=== PATIENT | male | born 1955 | race Caucasian/White ===

== ENCOUNTER 2018-07-24 13:47 | Emergency (ER) | payer MEDICARE ==
[~2018-07-24] VITALS: Ht 177.8 cm; Wt 136.1 kg
[~2018-07-24 13:47] MED LIST: ALLEGRA ALLERGY60 MG PO; ALLO300 PO; ASPI81EC PO; CELE200 PO; CYCL10 PO; METO50ER PO; NEBI5 PO; OLME40 PO; OMEPRAZOLE MAGN20 MG PO; OXYACE7.5T PO; OXYC10TA19 PO; VICODIN ES 7.51 EACH PO; WARF5 PO; ZESTORETIC 20-121 EA PO
[2018-07-24] MEDS ORDERED: ALLO300 PO (13:57)
[2018-07-24 15:26] LABS: BASOPHILS ABSOLUTE AUTO 0.03 K/mm3 (0.00-0.23); BASOPHILS PERCENT AUTO 0 % (0-2); EOSINOPHILS ABSOLUTE AUTO 0.28 K/mm3 (0.00-0.68); EOSINOPHILS PERCENT AUTO 3 % (0-6); Hematocrit 51.2 % (37.0-53.0); Hemoglobin 17.9 g/dL (13.5-17.5); IMMATURE GRAN ABSOLUTE AUTO 0.03 K/mm3 (0.00-0.10); IMMATURE GRAN PERCENT AUTO 0 % (0-1); LYMPHOCYTES ABSOLUTE AUTO 2.42 K/mm3 (0.84-5.20); LYMPHOCYTES PERCENT AUTO 30 % (21-46); MONOCYTES ABSOLUTE AUTO 0.64 K/mm3 (0.16-1.47); MONOCYTES PERCENT AUTO 8 % (4-13); Mean Corpuscular HGB 31.7 pg (26.0-34.0); Mean Corpuscular Volume 91 fL (80-100); Mean Platelet Volume 9.6 fL (9.1-12.4); NEUTROPHILS ABSOLUTE AUTO 4.74 K/mm3 (1.96-9.15); NEUTROPHILS PERCENT AUTO 58 % (41-73); Platelet Count 138 K/mm3 (150-400); RDW Coefficient Variation 13.2 % (11.7-14.2); RDW Standard Deviation 42.5 fL (35.1-46.3); Red Blood Cell Count 5.65 M/mm3 (4.30-5.90); White Blood Cell Count 8.14 K/mm3 (4.00-11.30)
[2018-07-24 15:45] LABS: Anion Gap 5 mmol/L (6-16); Blood Urea Nitrogen 18 mg/dL (8-24); Bun/Creatinine Ratio 14.3 (12.0-20.0); CO2, Blood 32 mmol/L (21-32); Calcium, Blood 9.5 mg/dL (8.5-10.1); Chloride, Blood 105 mmol/L (98-108); Creatinine, Blood 1.26 mg/dL (0.60-1.20); Glomerular Filtration Rate >60 (60-); Glucose, Blood 92 mg/dL (70-99); Potassium, Blood 3.8 mmol/L (3.5-5.5); Sodium, Blood 142 mmol/L (136-145)
[2018-07-24 15:46] LABS: International Normalized Ratio 2.67; Prothrombin Time Results 25.9 Sec (9.7-11.5)
[2018-07-24] MEDS ORDERED: Norco 5-325 Ta1 EACH PO (15:49)
== END 2018-07-24 16:12 | disposition home or self-care (01) ==
LOC: ER 13:47
PROVIDERS: Physician Assistant
DX: M76.32 Iliotibial band syndrome, left leg (principal); I10 Essential (primary) hypertension; Z88.0 Allergy status to penicillin; Z88.8 Allergy status to other drugs, medicaments and biological substances; Z79.01 Long term (current) use of anticoagulants; Z79.899 Other long term (current) drug therapy; Z96.653 Presence of artificial knee joint, bilateral
CPT/HCPCS: 36415; 80048; 85025; 85610; 85730; 93971; 99284-25; J7512

== ENCOUNTER 2019-02-02 20:32 | Emergency (ER) | payer OTHER ==
[~2019-02-02] VITALS: Ht 180.3 cm; Wt 133.4 kg
[~2019-02-02 20:32] MED LIST changes: +Norco 5-325 Ta1 EACH PO
== END 2019-02-02 23:22 | disposition home or self-care (01) ==
LOC: ER 20:32
DX: J06.9 Acute upper respiratory infection, unspecified (principal); I10 Essential (primary) hypertension; Z85.528 Personal history of other malignant neoplasm of kidney
CPT/HCPCS: 71046; 87081; 87430; 99283-25

== ENCOUNTER 2019-12-17 12:17 | Emergency (ER) | payer MEDICARE ==
[~2019-12-17] VITALS: Ht 180.3 cm; Wt 124.7 kg
[2019-12-17] MEDS ORDERED: OXYACE7.5T PO (16:12)
== END 2019-12-17 16:41 | disposition home or self-care (01) ==
LOC: ER 12:17
DX: S22.42XA Multiple fractures of ribs, left side, initial encounter for closed fracture (principal); I10 Essential (primary) hypertension; Z79.01 Long term (current) use of anticoagulants; Z79.899 Other long term (current) drug therapy; Z88.0 Allergy status to penicillin; Z88.6 Allergy status to analgesic agent; Z87.442 Personal history of urinary calculi; W18.30XA Fall on same level, unspecified, initial encounter
CPT/HCPCS: 71046; 99283-25; A9270

== ENCOUNTER 2021-09-05 08:55 | Day surgery (SDC) | payer OTHER ==
[~2021-09-05] VITALS: Ht 180.3 cm; Wt 125.9 kg
[~2021-09-05 08:55] MED LIST changes: +AZELASTINE137 MCG/01; +Gabapentin600 MG PO
--- NOTE | 2021-09-05 11:05 | NUR ---
09/05/21 1105 CHICO HUTCHINSON 0.05MG OF EPI ADDED TO 10MLS OF LIDOCAINE 1% TO CREATE A LOCAL SOLUTION OF LIDOCAINE 1% WITH EPI 1:200,000. 3MLS INJECTED BEFORE CASE . 7MLS OF LOCAL POURED ONTO STERILE FIELD FOR USE DURING CASE. 30MLS OF EPI POURED ONTO STERILE FIELD TO USE FOR PACKING DURING CASE.
--- NOTE | 2021-09-07 08:15 | NUR ---
09/07/21 0815 DIONICIO ISAACS UPDATED INFORMATION FOR RN- RXD
== END 2021-09-05 14:00 | disposition home or self-care (01) ==
LOC: ORSCSDS 08:55
PROVIDERS: Otolaryngology
PROC: 09U707Z Supplement Right Tympanic Membrane with Autologous Tissue Substitute, Open Approach (ICD-10-PCS; principal; 2021-09-05 10:30)
PROC: 0NB50ZZ Excision of Right Temporal Bone, Open Approach (ICD-10-PCS; principal; 2021-09-05 10:30)
DX: H72.91 Unspecified perforation of tympanic membrane, right ear (principal); H60.501 Unspecified acute noninfective otitis externa, right ear; G47.33 Obstructive sleep apnea (adult) (pediatric); E66.9 Obesity, unspecified; I10 Essential (primary) hypertension; Z68.38 Body mass index [BMI] 38.0-38.9, adult; I48.91 Unspecified atrial fibrillation; F17.210 Nicotine dependence, cigarettes, uncomplicated; Z79.01 Long term (current) use of anticoagulants; Z79.899 Other long term (current) drug therapy
CPT/HCPCS: A9270; J0171; J1100; J2001; J2370; J2405; J2704; J3010

== ENCOUNTER → 2022-03-21 | Outpatient (CLI) | payer OTHER ==
[2022-03-21 08:26] LABS: International Normalized Ratio 3.42; Prothrombin Time Results 33.1 Sec (9.7-11.5)
== END | disposition home or self-care (01) ==
LOC: LAB 08:00 → LAB SHORT 08:00
PROVIDERS: Internal Medicine Cardiovascular Disease
DX: Z79.01 Long term (current) use of anticoagulants (principal); Z51.81 Encounter for therapeutic drug level monitoring
CPT/HCPCS: 85610

== ENCOUNTER → 2022-04-02 | Outpatient (CLI) | payer OTHER | END | disposition home or self-care (01) | LOC: LAB 08:06 → LAB SHORT 08:06 | DX: E29.1 Testicular hypofunction (principal) | CPT/HCPCS: 85014 ==

== ENCOUNTER → 2022-05-01 | Outpatient (CLI) | payer OTHER | END | disposition home or self-care (01) | LOC: LAB SHORT 08:19 → LAB 08:19 | DX: E29.1 Testicular hypofunction (principal) | CPT/HCPCS: 85014 ==

== ENCOUNTER 2022-06-29 16:04 | Emergency (ER) | payer OTHER ==
[~2022-06-29] VITALS: Ht 177.8 cm; Wt 132.4 kg
[2022-06-29 16:51] LABS: BASOPHILS ABSOLUTE AUTO 0.02 K/mm3 (0.00-0.23); BASOPHILS PERCENT AUTO 0 % (0-2); EOSINOPHILS ABSOLUTE AUTO 0.15 K/mm3 (0.00-0.68); EOSINOPHILS PERCENT AUTO 2 % (0-6); Hematocrit 51.7 % (37.0-53.0); Hemoglobin 17.7 g/dL (13.5-17.5); IMMATURE GRAN ABSOLUTE AUTO 0.03 K/mm3 (0.00-0.10); IMMATURE GRAN PERCENT AUTO 0 % (0-1); LYMPHOCYTES ABSOLUTE AUTO 2.21 K/mm3 (0.84-5.20); LYMPHOCYTES PERCENT AUTO 27 % (21-46); MONOCYTES ABSOLUTE AUTO 0.61 K/mm3 (0.16-1.47); MONOCYTES PERCENT AUTO 7 % (4-13); Mean Corpuscular HGB 31.3 pg (26.0-34.0); Mean Corpuscular HGB Conc 34.2 g/dL (31.5-36.5); Mean Corpuscular Volume 92 fL (80-100); Mean Platelet Volume 9.1 fL (9.1-12.4); NEUTROPHILS ABSOLUTE AUTO 5.21 K/mm3 (1.96-9.15); NEUTROPHILS PERCENT AUTO 63 % (41-73); Platelet Count 164 K/mm3 (150-400); RDW Coefficient Variation 14.5 % (11.7-14.2); RDW Standard Deviation 48.3 fL (35.1-46.3); Red Blood Cell Count 5.65 M/mm3 (4.30-5.90); White Blood Cell Count 8.23 K/mm3 (4.00-11.30)
[2022-06-29 17:10] LABS: Albumin, Blood 3.7 g/dL (3.4-5.0); Albumin/Globulin Ratio 1.1 (0.8-1.8); Bilirubin, Total 0.7 mg/dL (0.1-1.0); Bun/Creatinine Ratio 13.4 (12.0-20.0); Calcium, Blood 9.2 mg/dL (8.5-10.1); Creatinine, Blood 1.12 mg/dL (0.60-1.20); Globulin, Blood 3.4 g/dL (2.2-4.0); Potassium, Blood 4.1 mmol/L (3.5-5.5); Total Protein, Blood 7.1 g/dL (6.4-8.2)
[2022-06-29 18:15] VITALS: BP 132/79
== END 2022-06-29 18:23 | disposition home or self-care (01) ==
LOC: ER 16:04
PROVIDERS: Physician Assistant
DX: S39.012A Strain of muscle, fascia and tendon of lower back, initial encounter (principal); S00.93XA Contusion of unspecified part of head, initial encounter; I10 Essential (primary) hypertension; Z88.0 Allergy status to penicillin; Z88.1 Allergy status to other antibiotic agents; Z85.528 Personal history of other malignant neoplasm of kidney; Z79.01 Long term (current) use of anticoagulants; Z79.899 Other long term (current) drug therapy; W13.2XXA Fall from, out of or through roof, initial encounter
CPT/HCPCS: 70450; 71045; 72128; 80053; 85025; 96374; 99284-25; A9270; J3010

== ENCOUNTER → 2022-07-01 | Outpatient (CLI) | payer OTHER ==
[2022-07-01 12:51] LABS: International Normalized Ratio 2.22; Prothrombin Time Results 22.3 Sec (9.7-11.5)
== END | disposition home or self-care (01) ==
LOC: LAB SHORT 12:15 → LAB 12:15
PROVIDERS: Internal Medicine Cardiovascular Disease
DX: Z79.01 Long term (current) use of anticoagulants (principal); Z51.81 Encounter for therapeutic drug level monitoring; E29.1 Testicular hypofunction
CPT/HCPCS: 84403; 85014; 85610

== ENCOUNTER → 2022-09-16 | Outpatient (CLI) | payer OTHER | LOC: LAB 18:00 | DX: R10.84 Generalized abdominal pain (principal) ==

== ENCOUNTER → 2022-09-26 | Outpatient (CLI) | payer OTHER | END | disposition home or self-care (01) | LOC: LAB SHORT 10:30 → LAB 10:30 | DX: N30.90 Cystitis, unspecified without hematuria (principal) | CPT/HCPCS: 87086 ==

== ENCOUNTER → 2022-10-09 | Outpatient (CLI) | payer OTHER ==
[2022-10-09 12:30] LABS: International Normalized Ratio 2.37; Prothrombin Time Results 23.7 Sec (9.7-11.5)
== END | disposition home or self-care (01) ==
LOC: LAB 11:35 → LAB SHORT 11:35
PROVIDERS: Internal Medicine Cardiovascular Disease
DX: Z51.81 Encounter for therapeutic drug level monitoring (principal); E29.1 Testicular hypofunction; Z79.01 Long term (current) use of anticoagulants
CPT/HCPCS: 85014; 85610

== ENCOUNTER → 2022-11-28 | Outpatient (CLI) | payer OTHER | END | disposition home or self-care (01) | LOC: LAB 14:18 → LAB SHORT 14:18 | DX: E29.1 Testicular hypofunction (principal) | CPT/HCPCS: 84403; 85014 ==

== ENCOUNTER 2024-04-27 08:14 | Day surgery (SDC) | payer OTHER ==
[~2024-04-27] VITALS: Ht 180.3 cm; Wt 127.0 kg
[~2024-04-27 08:14] MED LIST changes: +ALLEGRA ALLERG180 MG PO; +CEPH500 PO; +DEPO-TESTO200 MG/1 M; +ELIQUIS5 M2 PO; +GABA300 PO; -Gabapentin600 MG PO; +Lactated Ringer's 1,000 ML IV SCH; +NITR.4SL SL; +SPIR25 PO
--- NOTE | 2024-04-27 08:32 | NUR ---
Ambulatory in Day Surgery History, Chart, Medications and Allergies reviewed before start of procedure. Pre-Op teaching done. Pt verbalizes understanding. Patient States Post-Procedure ride home has been arranged.
[2024-04-27] MEDS ORDERED: AMLO5 PO (08:37)
[2024-04-27 08:45] VITALS: BP 163/94
[2024-04-27] MEDS ORDERED: propofoL 60 ML IV ONE (09:03)
[2024-04-27] MEDS ORDERED: Benzocaine Oral Spray 0.5ML UD ONE (09:04)
--- NOTE | 2024-04-27 09:12 | NUR ---
04/27/24 [address] PHILLIPS; SEE ANESTHESIA RECORDS.
[2024-04-27 09:55] VITALS: BP 155/97
--- NOTE | 2024-04-27 09:55 | NUR ---
REPORT RECEIVED FROM SUNI RIOS. VSS. PT ON RA. PT [id number]&[id number]. PT ABLE TO REPOSITION SELF IN BED. PT REQUESTING PO FLUIDS AND TOLERATING THEM WELL. PT DENIES PAIN, NAUSEA OR OTHER DISCOMFORTS.
[2024-04-27 10:05] VITALS: BP 132/89
== END 2024-04-27 10:12 | disposition home or self-care (01) ==
LOC: ORSCMMR 08:14 → ORD 09:30 → ORSCMMR 09:30
PROVIDERS: Internal Medicine Gastroenterology
PROC: 0DBK8ZX Excision of Ascending Colon, Via Natural or Artificial Opening Endoscopic, Diagnostic (ICD-10-PCS; principal; 2024-04-27 09:30)
PROC: 0DB58ZX Excision of Esophagus, Via Natural or Artificial Opening Endoscopic, Diagnostic (ICD-10-PCS; principal; 2024-04-27 09:30)
PROC: 0DB48ZX Excision of Esophagogastric Junction, Via Natural or Artificial Opening Endoscopic, Diagnostic (ICD-10-PCS; principal; 2024-04-27 09:30)
PROC: 0DB98ZX Excision of Duodenum, Via Natural or Artificial Opening Endoscopic, Diagnostic (ICD-10-PCS; principal; 2024-04-27 09:30)
PROC: 0DB78ZX Excision of Stomach, Pylorus, Via Natural or Artificial Opening Endoscopic, Diagnostic (ICD-10-PCS; principal; 2024-04-27 09:30)
PROC: 0DBL8ZX Excision of Transverse Colon, Via Natural or Artificial Opening Endoscopic, Diagnostic (ICD-10-PCS; principal; 2024-04-27 09:30)
DX: R11.2 Nausea with vomiting, unspecified (principal); R10.33 Periumbilical pain; K22.70 Barrett's esophagus without dysplasia; D12.2 Benign neoplasm of ascending colon; K63.5 Polyp of colon; K62.1 Rectal polyp; Z86.0101 Personal history of adenomatous and serrated colon polyps; E66.01 Morbid (severe) obesity due to excess calories; Z68.39 Body mass index [BMI] 39.0-39.9, adult; G47.33 Obstructive sleep apnea (adult) (pediatric); I10 Essential (primary) hypertension; I48.91 Unspecified atrial fibrillation; Z79.01 Long term (current) use of anticoagulants; Z79.899 Other long term (current) drug therapy; Z85.528 Personal history of other malignant neoplasm of kidney; E78.5 Hyperlipidemia, unspecified; I25.10 Atherosclerotic heart disease of native coronary artery without angina pectoris
CPT/HCPCS: 88305; 88342; A9270; J2704; J7120